=== PATIENT | male | born 1995 | race African-American/Black ===

== ENCOUNTER 2021-02-27 08:33 | Emergency (ER) | payer SELFPAY ==
[2021-02-27 08:51] VITALS: BP 111/68; PULSE 69; TEMP 97.5; BMI 31.6
== END 2021-02-27 11:08 | disposition home or self-care (01) ==
LOC: JERFT 08:33
PROC: 0H90XZZ Drainage of Scalp Skin, External Approach (ICD-10-PCS; principal; 2021-02-27)
DX: L02.811 Cutaneous abscess of head [any part, except face] (principal)
CPT/HCPCS: 99282-25